=== PATIENT | female | born 1990 | race African-American/Black ===

== ENCOUNTER → 2018-07-04 09:07 | Outpatient (CLI) | payer MEDICAID ==
[~2018-07-04] VITALS: Ht 160 cm; Wt 117.9 kg
[2018-07-04 09:56] VITALS: Ht 160 cm; Wt 117.9 kg
== END | disposition home or self-care (01) ==
LOC: D.FANS 09:00
DX: E11.9 Type 2 diabetes mellitus without complications (principal)